=== PATIENT | female | born 1945 | race Caucasian/White ===

== ENCOUNTER → 2020-05-09 | Outpatient (CLI) | payer OTHER | LOC: HYPER 13:23 | PROVIDERS: ATTEND Emergency Medicine | DX: S80.261A Insect bite (nonvenomous), right knee, initial encounter (principal); S80.262A Insect bite (nonvenomous), left knee, initial encounter; J45.909 Unspecified asthma, uncomplicated; E78.5 Hyperlipidemia, unspecified; K21.9 Gastro-esophageal reflux disease without esophagitis; M19.90 Unspecified osteoarthritis, unspecified site; F41.9 Anxiety disorder, unspecified; Z98.49 Cataract extraction status, unspecified eye; W57.XXXA Bitten or stung by nonvenomous insect and other nonvenomous arthropods, initial encounter; Y93.89 Activity, other specified; Y92.89 Other specified places as the place of occurrence of the external cause; Y99.8 Other external cause status ==